=== PATIENT | male | born 1995 | race Caucasian/White ===

== ENCOUNTER 2016-09-21 09:19 | Emergency (ER) | payer OTHER ==
[2016-09-21 09:30] VITALS: BP 130/84; PULSE 75; RESP 14; TEMP 98.3
--- NOTE | 2016-09-21 09:36 | ED ---
Skin/Abscess/FB HPI - General Chief complaint: Skin/Abscess/Foreign Body Stated complaint: abscess on face Time Seen by Provider: 09/21/16 09:32 Source: patient, RN notes reviewed Mode of arrival: ambulatory Limitations: no limitations - History of Present Illness Initial comments: 20-year-old male presents emergency Department with chief complaint of left facial abscess. Patient states started Monday. Patient states he has a history of MRSA. Patient states her some discomfort but denies fever, chills, headache or neck stiffness. Patient states her was some drainage but states has stopped and states it only redness. Patient states that he tried some ice with no relief. Patient has NO KNOWN DRUG ALLERGIES. - Related Data Home Medications Medication Instructions Recorded Confirmed Sulfamethoxazole/Trimethoprim 1 tab PO Q12H 03/22/16 03/22/16 [Bactrim DS 800-160 mg] Previous Rx's Medication Instructions Recorded Acetaminophen-Codeine 300-30mg 1 each PO Q4H PRN #12 tablet 03/22/16 [Tylenol #3] Sulfamethox-Tmp 800-160Mg [Bactrim 1 each PO Q12HR #20 tab 03/22/16 DS 800-160 mg] Sulfamethox-Tmp 800-160Mg [Bactrim 2 each PO Q12HR #40 tab 09/21/16 Ds] Allergies Allergy/AdvReac Type Severity Reaction Status Date / Time No Known Allergies Allergy Verified 09/21/16 09:30 Review of Systems ROS Statement: Those systems with pertinent positive or pertinent negative responses have been documented in the HPI. ROS Other: All systems not noted in ROS Statement are negative. Past Medical History Past Medical History: No Reported History History of Any Multi-Drug Resistant Organisms: MRSA Date of last positivie culture/infection: 03/22/16 MDRO Source:: penis Past Surgical History: No Surgical Hx Reported Past Psychological History: No Psychological Hx Reported Smoking Status: Never smoker Past Alcohol Use History: None Reported Past Drug Use History: None Reported General Exam Limitations: no limitations General appearance: alert, in no apparent distress Head exam: Present: atraumatic, normocephalic, normal inspection Eye exam: Present: normal appearance, PERRL, EOMI. Absent: scleral icterus, conjunctival injection, periorbital swelling ENT exam: Present: normal exam, normal oropharynx, mucous membranes moist, TM's normal bilaterally Neck exam: Present: normal inspection, full ROM. Absent: tenderness, meningismus, lymphadenopathy Respiratory exam: Present: normal lung sounds bilaterally. Absent: respiratory distress, wheezes, rales, rhonchi, stridor Cardiovascular Exam: Present: regular rate, normal rhythm, normal heart sounds. Absent: systolic murmur, diastolic murmur, rubs, gallop, clicks Skin exam: Present: other (Left cheek there is a 2 cm area of erythema with a central lesion no purulent drainage) Course Vital Signs 09/21/16 09:27 Temperature 98.3 F Pulse Rate 75 Respiratory 14 Rate Blood Pressure 130/84 O2 Sat by Pulse 100 Oximetry Medical Decision Making - Medical Decision Making 20-year-old male presented for left facial swelling redness. Patient appears to have cellulitis secondary to a small abscess which has ruptured. Patient was placed on Bactrim at this time. Return parameters were discussed. Disposition Clinical Impression: Facial cellulitis Disposition: HOME SELF-CARE Condition: Stable Instructions: Cellulitis (ED) Additional Instructions: Please return to the Emergency Department if symptoms worsen or any other concerns. Prescriptions: Sulfamethox-Tmp 800-160Mg [Bactrim Ds] 2 each PO Q12HR #40 tab Referrals: Wicho Bowen MD [Primary Care Provider] - 1-2 days Time of Disposition: 09:36
== END 2016-09-21 09:41 | disposition home or self-care (01) ==
LOC: EC 09:19
DX: L03.211 Cellulitis of face (principal)
CPT/HCPCS: 10060; 99282; 99283

== ENCOUNTER 2016-09-21 22:58 | Emergency (ER) | payer OTHER ==
[2016-09-21 23:11] VITALS: BP 129/72; PULSE 89; RESP 18
--- NOTE | 2016-09-21 23:30 | ED ---
General Adult HPI - General Chief complaint: Skin/Abscess/Foreign Body Stated complaint: facial swelling-revisit Time Seen by Provider: 09/21/16 23:20 Source: patient, RN notes reviewed Mode of arrival: ambulatory Limitations: no limitations - History of Present Illness Initial comments: Patient 20-year-old male who presents emergency room today with a chief complaint of abscess located to the left cheek. He does admit that he was seen here in the emergency room this morning started on antibiotics. He states the swelling has gotten worse. He does admit that he's been doing some warm compresses been able to some drainage out of the area. Patient denies any other complaints or associated symptoms. He states the symptoms just started yesterday. Patient denies any recent fever, chills, shortness of breath, chest pain, back pain, abdominal pain, nausea or vomiting, numbness or tingling, dysuria or hematuria, constipation or diarrhea, headaches or visual changes, or any other complaints. - Related Data Home Medications Medication Instructions Recorded Confirmed Naproxen Sodium [Aleve] 220 mg PO DAILY PRN 09/21/16 09/21/16 Sulfamethox-Tmp 800-160Mg [Bactrim 2 tab PO Q12HR 09/21/16 09/21/16 Ds] Previous Rx's Medication Instructions Recorded Ibuprofen [Motrin] 800 mg PO Q6HR PRN #30 tab 09/22/16 Allergies Allergy/AdvReac Type Severity Reaction Status Date / Time No Known Allergies Allergy Verified 09/21/16 23:17 Review of Systems ROS Statement: Those systems with pertinent positive or pertinent negative responses have been documented in the HPI. ROS Other: All systems not noted in ROS Statement are negative. Past Medical History Past Medical History: No Reported History History of Any Multi-Drug Resistant Organisms: MRSA Date of last positivie culture/infection: 03/22/16 MDRO Source:: penis Past Surgical History: No Surgical Hx Reported Past Psychological History: No Psychological Hx Reported Smoking Status: Never smoker Past Alcohol Use History: None Reported Past Drug Use History: None Reported General Exam - General Exam Comments Initial Comments: General: The patient is awake and alert, in no distress, and does not appear acutely ill. Eye: Pupils are equal, round and reactive to light, extra-ocular movements are intact. No nystagmus. There is normal conjunctiva bilaterally. No signs of icterus. Ears, nose, mouth and throat: There are moist mucous membranes and no oral lesions. Neck: The neck is supple, there is no tenderness or JVD. Cardiovascular: There is a regular rate and rhythm. No murmur, rub or gallop is appreciated. Respiratory: Lungs are clear to auscultation, respirations are non-labored, breath sounds are equal. No wheezes, stridor, rales, or rhonchi. Musculoskeletal: Normal ROM, no tenderness. Strength 5/5. Sensation intact. Pulses equal bilaterally 2+. Neurological: A&O x 3. CN II-XII intact, There are no obvious motor or sensory deficits. Coordination appears grossly intact. Speech is normal. Skin: Does have moderate swelling to the left cheek area. There is an area that is ulcerated there is some firmness on palpation locally to the area. He does have some swelling of both the upper and lower lids. Psychiatric: Cooperative, appropriate mood & affect, normal judgment. Limitations: no limitations Course Vital Signs 09/21/16 23:07 Temperature 98.7 F Pulse Rate 89 Respiratory 18 Rate Blood Pressure 129/72 O2 Sat by Pulse 99 Oximetry Medical Decision Making - Medical Decision Making 18-gauge needle used to make small incision to left cheek area. Small amount of drainage removed. This time was discussed with patient about further options of drainage. Has been less than 24 hours. Patient will be continued on antibiotics and advised to use warm compresses. He is advised to return to emergency room if symptoms are increase worsen in the morning and advised that further drainage may need be required. Disposition Clinical Impression: Abscess Disposition: HOME SELF-CARE Condition: Good Instructions: Abscess (ED) Additional Instructions: Please continue warm compresses and antibiotics over prescribed earlier. Please return to emergency room symptoms increase or worsen or for any other concerns as discussed. Prescriptions: Ibuprofen [Motrin] 800 mg PO Q6HR PRN #30 tab PRN Reason: Pain Time of Disposition: 00:02
[2016-09-22 00:09] VITALS: TEMP 98
== END 2016-09-22 00:10 | disposition home or self-care (01) ==
LOC: EC 22:58
DX: L02.01 Cutaneous abscess of face (principal)
CPT/HCPCS: 10060; 99283

== ENCOUNTER 2016-09-22 19:37 | Inpatient (IN) | payer OTHER ==
[2016-09-22] MEDS ORDERED: SODIUM CHLORIDE 0.9% 1,000 ML IV ONE (21:31)
[2016-09-22] MEDS ORDERED: RX INFO: IV CONTRAST WAS GIVEN 1 EACH MISC MISCELLANE PRN ×2 (21:33→21:39)
[2016-09-22] MEDS ORDERED: IV VANCOMYCIN PER PHARMACY 1 EACH MISC MISCELLANE PRN (21:41)
--- NOTE | 2016-09-22 21:45 | ED ---
Skin/Abscess/FB HPI <Rosales Hwang - Last Filed: 09/22/16 22:28> - General Source: patient, RN notes reviewed, old records reviewed Mode of arrival: ambulatory Limitations: no limitations <Elaine Ferraro - Last Filed: 09/22/16 22:42> - General Chief complaint: Skin/Abscess/Foreign Body Stated complaint: DX Cellulitis/ recheck Time Seen by Provider: 09/22/16 21:18 - History of Present Illness Initial comments: This is a 20-year-old male with chief complaint left eye swelling left cheek swelling. Patient was diagnosed with facial cellulitis and was discharged with oral Bactrim. Patient reports that he's been taking it for the past day and half however does not help. Patient reports that the swelling over his eye is now extended and he is unable to fully open it. He reports that he has no pain with extraocular eye movements. He states that his vision is intact. States he has some mild drainage from the eye. Patient denies any fever or chills. He denies any nausea but didn't vomit once today. Denies any abdominal pain, dysuria or hematuria or back pain. (Elaine Ferraro) - Related Data Home Medications Medication Instructions Recorded Confirmed Naproxen Sodium [Aleve] 220 mg PO DAILY PRN 09/21/16 09/22/16 Sulfamethox-Tmp 800-160Mg [Bactrim 2 tab PO Q12HR 09/21/16 09/22/16 Ds] Previous Rx's Medication Instructions Recorded Ibuprofen [Motrin] 800 mg PO Q6HR PRN #30 tab 09/22/16 Allergies Allergy/AdvReac Type Severity Reaction Status Date / Time No Known Allergies Allergy Verified 09/22/16 21:23 Review of Systems ROS Other: All systems not noted in ROS Statement are negative. <Rosales Hwang - Last Filed: 09/22/16 22:28> ROS Other: All systems not noted in ROS Statement are negative. <Elaine Ferraro - Last Filed: 09/22/16 22:42> ROS Statement: Those systems with pertinent positive or pertinent negative responses have been documented in the HPI. Past Medical History Past Medical History: No Reported History History of Any Multi-Drug Resistant Organisms: MRSA Date of last positivie culture/infection: 03/22/16 MDRO Source:: penis Past Surgical History: No Surgical Hx Reported Past Psychological History: No Psychological Hx Reported Smoking Status: Never smoker Past Alcohol Use History: None Reported Past Drug Use History: None Reported <Elaine Ferraro - Last Filed: 09/22/16 22:42> General Exam <Rosales Hwang - Last Filed: 09/22/16 22:28> Limitations: no limitations General appearance: alert, in no apparent distress Head exam: Present: atraumatic, normocephalic, normal inspection Eye exam: Present: PERRL, EOMI, conjunctival injection (Diagnostic conjunctival injection.), other (Erythema and swelling over the left cheek. Evidence of an abscess opening in the center of the cheek. No drainage at this time.). Absent : normal appearance (Patient's left eye has some periorbital swelling. No pain with extraocular eye movements.), scleral icterus, periorbital swelling ENT exam: Present: normal exam, normal oropharynx, mucous membranes moist, TM's normal bilaterally Neck exam: Present: normal inspection. Absent: tenderness, meningismus, lymphadenopathy Respiratory exam: Present: normal lung sounds bilaterally. Absent: respiratory distress, wheezes, rales, rhonchi, stridor Cardiovascular Exam: Present: regular rate, normal rhythm, normal heart sounds. Absent: systolic murmur, diastolic murmur, rubs, gallop, clicks GI/Abdominal exam: Present: soft, normal bowel sounds. Absent: distended, tenderness, guarding, rebound, rigid Extremities exam: Present: normal inspection, full ROM, normal capillary refill. Absent: tenderness, pedal edema, joint swelling, calf tenderness Back exam: Present: normal inspection Neurological exam: Present: alert, oriented X3, CN II-XII intact Psychiatric exam: Present: normal affect, normal mood Skin exam: Present: warm, dry, intact, normal color. Absent: rash <Elaine Ferraro - Last Filed: 09/22/16 22:42> - General Exam Comments Initial Comments: This is a pleasant 20-year-old male. No distress. (Elaine Ferraro) Medical Decision Making - Lab Data Result diagrams: 09/22/16 21:50 09/22/16 21:50 <Rosales Hwang - Last Filed: 09/22/16 22:28> - Lab Data Result diagrams: 09/22/16 21:50 09/22/16 21:50 - Radiology Data Radiology results: report reviewed <Tracey Ferraroily - Last Filed: 09/22/16 22:42> - Medical Decision Making Patient was reevaluated by myself, Dr. Hwang. Patient does have cellulitis of the left upper face and left. Orbital region. Patient has had 2 recent ER visits and has been on Bactrim. Patient does meet sepsis criteria diagnosed at 10:25 PM. IV antibiotics have been started. Case was discussed in detail with Dr. chun, who will admit for Dr. Bowen. Patient was updated (Rosales Hwang) Is a 20-year-old male with 3 days of left-sided facial redness and swelling. Patient was diagnosed with left-sided facial cellulitis and was discharged on Bactrim. He was seen a second time the emergency room yesterday and it was drained slightly. Patient did not have a culture obtained at that time. Patient reports that even though taking antibiotics since became much worse. He has severe swelling over the left eye. He reports that he woke up and he could not open his eye. He states the pain is also worse. Denies any fever or chills. No meningeal signs. Patient will be started on IV fluids and IV vancomycin and Unasyn. CT orbits obtained to rule out orbital cellulitis. ( Elaine Ferraro) - Lab Data Lab Results 09/22/16 09/22/16 09/22/16 Range/Units 21:50 21:50 21:50 WBC 12.1 H (4.0-11.0) k/uL RBC 5.07 (4.30-5.90) m/uL Hgb 15.2 (13.0-17.5) gm/dL Hct 44.4 (39.0-53.0) % MCV 87.5 (80.0-100.0) fL MCH 30.0 (25.0-35.0) pg MCHC 34.3 (31.0-37.0) g/dL RDW 13.4 (11.5-15.5) % Plt Count 246 (150-450) k/uL Neutrophils % 72 % Lymphocytes % 17 % Monocytes % 8 % Eosinophils % 1 % Basophils % 1 % Neutrophils # 8.7 H (1.3-7.7) k/uL Lymphocytes # 2.1 (1.0-4.8) k/uL Monocytes # 0.9 (0-1.0) k/uL Eosinophils # 0.1 (0-0.7) k/uL Basophils # 0.1 (0-0.2) k/uL Sodium 143 (137-145) mmol/L Potassium 4.1 (3.5-5.1) mmol/L Chloride 106 (98-107) mmol/L Carbon Dioxide 22 (22-30) mmol/L Anion Gap 15 mmol/L BUN 18 (9-20) mg/dL Creatinine 1.11 (0.66-1.25) mg/dL Est GFR (MDRD) Af Amer >60 (>60 ml/min/1.73 sqM) Est GFR (MDRD) Non-Af >60 (>60 ml/min/1.73 sqM) Glucose 112 H (74-99) mg/dL Plasma Lactic Acid Mookie 1.1 (0.7-2.0) mmol/L Calcium 9.8 (8.4-10.2) mg/dL Total Bilirubin 0.8 (0.2-1.3) mg/dL AST 21 (17-59) U/L ALT 23 (21-72) U/L Alkaline Phosphatase 108 (38-126) U/L Total Protein 7.7 (6.3-8.2) g/dL Albumin 4.6 (3.5-5.0) g/dL - Radiology Data Left periorbital preseptal left facial soft tissue edema and inflammation compatible with history of cellulitis. No drainable abscess. (Elaine Ferraro) Disposition <Rosales Hwang - Last Filed: 09/22/16 22:28> Time of Disposition: 21:47 <Elaine Ferraro - Last Filed: 09/22/16 22:42> Clinical Impression: Preseptal cellulitis Disposition: ADMITTED IP TO THIS HOSP Condition: Good Referrals: Wicho Bowen MD [Primary Care Provider] - 1-2 days
[2016-09-22] MEDS ORDERED: KETOROLAC 30 MG/ML 1 ML VIAL IVP STA (21:52)
[2016-09-22 22:10] LABS: Basophils # (A) 0.1 k/uL (0-0.2); Basophils % (A) 1 %; CH 30.6; CHCM 35.1; Eosinophils # (A) 0.1 k/uL (0-0.7); Eosinophils % (A) 1 %; HCT 44.4 % (39.0-53.0); HDW 2.82; HGB 15.2 gm/dL (13.0-17.5); Luc # (Auto) 0.24; Luc % (Auto) 2; Lymphocytes # (A) 2.1 k/uL (1.0-4.8); Lymphocytes % (A) 17 %; MCHC 34.3 g/dL (31.0-37.0); MCV 87.5 fL (80.0-100.0); Mean Platelet Volume 6.9; Monocytes # (A) 0.9 k/uL (0-1.0); Monocytes % (A) 8 %; Neutrophils # (A) 8.7 k/uL (1.3-7.7); Neutrophils % (A) 72 %; RBC 5.07 m/uL (4.30-5.90); RDW 13.4 % (11.5-15.5); WBC 12.1 k/uL (4.0-11.0); WBC (Perox) 11.77
[2016-09-22 22:19] LABS: ALT 23 U/L (21-72); AST 21 U/L (17-59); Alkaline Phosphatase 108 U/L (38-126); Anion Gap 15 mmol/L; Blood Urea Nitrogen 18 mg/dL (9-20); Calcium 9.8 mg/dL (8.4-10.2); Carbon Dioxide 22 mmol/L (22-30); Chloride 106 mmol/L (98-107); Glucose 112 mg/dL (74-99); Non-African American GFR(MDRD) >60 (>60 ml/min/1.73 sqM); Potassium 4.1 mmol/L (3.5-5.1); Sodium 143 mmol/L (137-145); Total Bilirubin 0.8 mg/dL (0.2-1.3); Total Protein 7.7 g/dL (6.3-8.2)
[2016-09-22] MEDS ORDERED: NALOXONE 0.4 MG/ML 1 ML VIAL IV PRN (22:37)
[2016-09-22] MEDS ORDERED: ONDANSETRON 4 MG/2 ML VIAL IVP PRN (22:37)
[2016-09-22] MEDS ORDERED: MORPHINE SULFATE 4 MG/ML SYRINGE IV PRN (22:37)
[2016-09-22] MEDS ORDERED: ACETAMINOPHEN TAB 325 MG TAB PO PRN (22:37)
[2016-09-22] MEDS ORDERED: IBUPROFEN 400 MG TAB PO PRN (22:37)
--- NOTE | 2016-09-22 22:41 | CT ---
EXAM: CT Orbits With Intravenous Contrast CLINICAL HISTORY: Left eye cellulitis. Increase pain. TECHNIQUE: Axial computed tomography images of the orbits with intravenous contrast. CTDI is 30 mGy and DLP is 447 mGy-cm This CT exam was performed using one or more of the following dose reduction techniques: automated exposure control, adjustment of the mA and/or kV according to patient size, and/or use of iterative reconstruction technique. Coronal and sagittal reformatted images were created and reviewed. COMPARISON: No relevant prior studies available. FINDINGS: Soft tissues: Left periorbital (preseptal) and left facial soft tissue edema/inflammation, compatible with cellulitis in the setting of infection. No drainable abscess. Orbits: The orbits and globes are intact. No mass or post-septal inflammatory changes. Sinuses: Trace maxillary sinus mucosal thickening. No air-fluid levels. Bones/joints: No acute fracture. IMPRESSION: Left periorbital (preseptal) and left facial soft tissue edema/inflammation, compatible with history of cellulitis. No drainable abscess.
[2016-09-22] MEDS: AMPICILLIN-SULBACTAM 3 GM in SODIUM CHLORIDE 0.9% 100 ML IVPB SCH (23:43)
[2016-09-22] MEDS: SODIUM CHLORIDE 0.9% 1,000 ML IV SCH (23:44)
[2016-09-23] MEDS ORDERED: VANCOMYCIN 1,500 MG in SODIUM CHLORIDE 0.9% 250 ML IVPB ONE ×2
[2016-09-23] MEDS: KETOROLAC 30 MG/ML 1 ML VIAL IVP PRN ×3 (07:52→18:21)
[2016-09-23] MEDS: AMPICILLIN-SULBACTAM 3 GM in SODIUM CHLORIDE 0.9% 100 ML IVPB SCH ×2 (08:05→15:06)
[2016-09-23] MEDS: SODIUM CHLORIDE 0.9% 1,000 ML IV SCH ×3 (08:05→21:56)
[2016-09-23] MEDS ORDERED: PANTOPRAZOLE 40 MG/10 ML VIAL IV SCH (09:00)
[2016-09-23] MEDS: VANCOMYCIN 1,250 MG in SODIUM CHLORIDE 0.9% 250 ML IVPB SCH ×3 (09:18→23:20)
--- NOTE | 2016-09-23 14:09 | HP ---
DATE OF ADMISSION: Patient a 20-year-old came in with swelling and redness of the left cheek area. It has been going on for 3-days and patient was given Bactrim without any significant improvement. He used Bactrim for a couple days. Patient has cellulitis in that area. CT of the head was done and it showed preseptal cellulitis without any involvement to orbit. Patient does have leukocytosis. Denied any fevers. Patient was started on vancomycin and Zosyn. Since he failed outpatient Bactrim, I am consulting Infectious Disease. Patient probably will need IV antibiotics. Possibility of discharge tomorrow. REVIEW OF SYSTEMS: CONSTITUTIONAL: No fever, no malaise, no fatigue. HEENT: No recent visual problems or hearing problems. Denied any sore throat. CARDIOVASCULAR: No chest pain, orthopnea, PND, no palpitations, no syncope. PULMONARY: No shortness of breath, no cough, no hemoptysis. GASTROINTESTINAL: No diarrhea, no nausea, no vomiting, no abdominal pain. Normoactive bowel sounds. NEUROLOGICAL: No headaches, no weakness, no numbness. HEMATOLOGICAL: Denies any bleeding or petechiae. GENITOURINARY: Denies any burning micturition, frequency, or urgency. MUSCULOSKELETAL/RHEUMATOLOGICAL: Denies any joint pain, swelling, or any muscle pain. ENDOCRINE: Denies any polyuria or polydipsia. DERMATOLOGIC: As described in HPI. The rest of the 14 point review of systems is negative. Home medications include: Naproxen, Bactrim. ALLERGIES: No known drug allergies. PAST MEDICAL HISTORY: None. SOCIAL HISTORY: Denied smoking, alcohol abuse or any drug abuse. FAMILY HISTORY: Denied any family history of hypertension, diabetes mellitus in the family. PHYSICAL EXAMINATION: VITAL SIGNS: Temperature 97.2, pulse of 80, respiratory rate of 18, blood pressure is 124/70, saturating at 97% on room air. GENERAL: The patient is alert and oriented x3, not in any acute distress. Well developed, well nourished. HEENT: Left side of the face has a nidus of infection with skin breakdown with surrounding cellulitis involving the lower eye lid on the left side with localized temperature. CARDIOVASCULAR: S1 and S2 present. No murmurs, rubs, or gallops. PULMONARY: Chest is clear to auscultation, no wheezing or crackles. ABDOMEN: Soft, nontender, nondistended, normoactive bowel sounds. No palpable organomegaly. MUSCULOSKELETAL: No joint swelling or deformity. EXTREMITIES: No cyanosis, clubbing, or pedal edema. NEUROLOGICAL: Gross neurological examination did not reveal any focal deficits. SKIN: No rashes. LABORATORY DATA: CBC and CMP abnormal for elevated WBC count of 11,200. ASSESSMENT AND PLAN: 1. Preseptal cellulitis and cellulitis of the left cheek for which patient was on vancomycin and Unasyn, which I will continue until Infectious Disease sees the patient. Patient at one point of time had pus coming out of it, although patient does not have any more pus coming out of it, because of which I cannot obtain any cultures at this point of time. 2. Leukocytosis secondary to assessment #1. PLAN: Continue with IV antibiotics today. Possibility of discharge tomorrow if improved on oral doxycycline and will get recommendations from Infectious Disease.
--- NOTE | 2016-09-23 17:35 | CONS ---
DATE OF CONSULTATION: 09/23/2016 REASON FOR CONSULTATION: Left facial cellulitis and abscess. HISTORY OF PRESENT ILLNESS: The patient is a 20-year-old male presenting to the ER with chief complaints of left facial pain, swelling, redness his symptoms have been going on for a few days now; since Monday. The patient said that Monday he woke up and there was a small pimple, and the area became more swollen and red. Patient has been evaluated, has been treated with Bactrim DS, which he took for about 2 days; however, he did not have any significant improvement. It became more swollen and red. Pain is described to be throbbing, 4 to 5 out of 10, and no radiation. Subsequently the patient was evaluated by the ER physician. He had an orbit CT that shows evidence of cellulitis but no drainable abscess. The patient was started on Unasyn and vancomycin. I was asked to see the patient for further recommendations regarding antibiotic therapy. patient noticed to have drainage from the area, mild in nature, though. Patient does give a history of previous MRSA infection. REVIEW OF SYSTEMS: CONSTITUTIONAL: Positive for weakness. Denies any high-grade fever. EYES: No complaint. ENT: As per HPI. RESPIRATORY: No complaint. CARDIOVASCULAR: No complaint. GENITOURINARY: No complaint. GASTROINTESTINAL: No complaint. MUSCULOSKELETAL: No complaint. INTEGUMENTARY: As per HPI. PSYCHOLOGIC: No complaint. ENDOCRINE: No complaint. NEUROLOGIC: No complaint. PAST MEDICAL HISTORY: MRSA infection of the genital area. PAST SURGICAL HISTORY: No major surgery. SOCIAL HISTORY: Denies smoking, drinking or drug use. FAMILY HISTORY: No pertinent findings noticed. ALLERGIES: NO KNOWN DRUG ALLERGIES. Medications currently include: 1. Tylenol. 2. Toradol. 3. Unasyn. 4. Vancomycin. 5. Narcan. 6. Zofran. 7. Protonix. On examination, blood pressure is 104/58 with a pulse of 79, temperature 97.4. He is 98% on room air. General description is a thin male lying in bed in no distress. No tachypnea or accessory muscle of respiration use. HEENT examination shows no pallor or scleral icterus. Left facial area has a significant amount swelling and induration. On minimal pressure, a significant amount of pus came out which was cultured. NECK: Trachea is central. No thyromegaly. LUNGS: Unlabored breathing. Clear to auscultation anteriorly. HEART: S1, S2. Regular rate and rhythm. ABDOMEN: Soft. No tenderness. EXTREMITIES: No edema of the feet. SKIN EXAMINATION: No rash or mass palpable. Neurologically patient is awake, alert, oriented x3. Mood and affect normal. LABS: Hemoglobin 15.2, white count 12.1. BUN of 18, creatinine 1.11. Liver enzymes are normal. Blood culture obtained; currently pending. DIAGNOSTIC IMPRESSION AND PLAN: Patient with left facial cellulitis in a patient who did have significant swelling and redness with induration; with minimal pressure, a significant amount of pus came out. Patient with previous history of methicillin-resistant Staphylococcus aureus infection; will be more likely an MRSA abscess. PLAN: 1. We did obtain wound cultures. Will wait for them to be finalized to determine his discharge antibiotics. 2. Recommend keeping the patient on IV antibiotic in the form of vancomycin, with high suspicion for MRSA with contact precautions. Discontinue Unasyn. 3. Depending upon his clinical response and cultures, will determine discharge antibiotics. Thank you for this consultation. Will follow this patient along with you. CARY
[2016-09-23 23:25] VITALS: RESP 16
[2016-09-24] MEDS ORDERED: VANCOMYCIN TROUGH DUE 1 EACH MISC MISCELLANE ONE (07:00)
[2016-09-24] MEDS: SODIUM CHLORIDE 0.9% 1,000 ML IV SCH (07:22)
[2016-09-24] MEDS: VANCOMYCIN 1,250 MG in SODIUM CHLORIDE 0.9% 250 ML IVPB SCH (07:23)
[2016-09-24 07:34] VITALS: BP 129/75; PULSE 80; TEMP 97.2
[2016-09-24 07:35] LABS: Basophils % (A) 0 %; CH 29.7; Eosinophils # (A) 0.1 k/uL (0-0.7); Eosinophils % (A) 2 %; HCT 41.7 % (39.0-53.0); HGB 13.8 gm/dL (13.0-17.5); Luc # (Auto) 0.18; Luc % (Auto) 3; Lymphocytes # (A) 1.6 k/uL (1.0-4.8); Lymphocytes % (A) 24 %; MCH 29.8 pg (25.0-35.0); MCV 90.4 fL (80.0-100.0); Mean Platelet Volume 6.4; Monocytes # (A) 0.5 k/uL (0-1.0); Monocytes % (A) 7 %; Neutrophils # (A) 4.4 k/uL (1.3-7.7); Neutrophils % (A) 65 %; RBC 4.62 m/uL (4.30-5.90); RDW 13.2 % (11.5-15.5); WBC 6.7 k/uL (4.0-11.0); WBC (Perox) 7.06
[2016-09-24 07:42] LABS: Anion Gap 10 mmol/L; Blood Urea Nitrogen 9 mg/dL (9-20); Calcium 9.2 mg/dL (8.4-10.2); Carbon Dioxide 22 mmol/L (22-30); Chloride 109 mmol/L (98-107); Glucose 94 mg/dL (74-99); Non-African American GFR(MDRD) >60 (>60 ml/min/1.73 sqM); Potassium 4.2 mmol/L (3.5-5.1); Sodium 141 mmol/L (137-145)
[2016-09-24] MEDS ORDERED: PANTOPRAZOLE 40 MG TABLET PO SCH (09:00)
--- NOTE | 2016-09-24 12:48 | DS ---
DATE OF ADMISSION: 09/22/2016 DATE OF DISCHARGE: Patient is 20-year-old admitted with preseptal cellulitis of the left side of the face. Patient believes there is improvement. I believe there is a little bit improvement in his redness with IV antibiotics with vancomycin. Patient's wound cultures are positive for gram-positive cocci. I do not have the finalization of the culture. As the patient wanted to go home and he feels better, I will go ahead and discharge him on doxycycline. Yesterday, I discussed his case with Dr. Ovalle that is what he recommended and I will discharge him on a week of antibiotics. Patient will follow with Dr. Ovalle next . Will follow up with the cultures. If the organism is not sensitive to doxycycline, I will go ahead and give him a call tomorrow and probably change the antibiotic or bring him back to the hospital depending on what the culture ( ). The patient was seen and examined on the day of discharge. Vitals are stable. PHYSICAL EXAMINATION: GENERAL: The patient is alert and oriented x3, not in any acute distress. Well developed, well nourished. HEENT: Pupils are round and equally reacting to light. EOMI. No scleral icterus. No conjunctival pallor. Normocephalic, atraumatic. No pharyngeal erythema. No thyromegaly. CARDIOVASCULAR: S1 and S2 present. No murmurs, rubs, or gallops. PULMONARY: Chest is clear to auscultation, no wheezing or crackles. ABDOMEN: Soft, nontender, nondistended, normoactive bowel sounds. No palpable organomegaly. MUSCULOSKELETAL: No joint swelling or deformity. EXTREMITIES: No cyanosis, clubbing, or pedal edema. NEUROLOGICAL: Gross neurological examination did not reveal any focal deficits. SKIN: No rashes. LEFT SIDE OF THE FACE: Cellulitis improved and there is no significant discharge from the wound on the left chin area. LABORATORY DATA: WBC count improved to 6700. ASSESSMENT AND PLAN: 1. Preseptal cellulitis. 2. Leukocytosis and sepsis secondary to that. Plan as mentioned above. Patient will follow with Dr. Wicho Bowen in 3 to [address] Ramakrishna Ovalle on 29 of September at 12 p.m. Plan as mentioned above. Discharged diet regular. Activity as tolerated.
== END 2016-09-24 13:05 | disposition home or self-care (01) | DRG 603 ==
LOC: EC 19:37 → 4MS4W 21:47
PROVIDERS: ADMIT Internal Medicine; ATTEND Internal Medicine
DX: L03.211 Cellulitis of face (principal); Z86.14 Personal history of Methicillin resistant Staphylococcus aureus infection; L03.213 Periorbital cellulitis; Z79.899 Other long term (current) drug therapy
CPT/HCPCS: 36415; 70481; 80048; 80053; 80202; 83605; 85025; 87040; 87070; 87077; 87186; 87205; 96361; 96365; 96366; 96367; 96375; 96376; 99285

== ENCOUNTER 2017-09-06 21:49 | Emergency (ER) | payer OTHER ==
[2017-09-06] MEDS ORDERED: PROPARACAINE 0.5% OPHTH DROPS 15 ML BTL RIGHT EYE STA (23:36)
[2017-09-06] MEDS ORDERED: KETOROLAC 30 MG/ML 1 ML VIAL IVP STA (23:36)
[2017-09-06] MEDS ORDERED: ONDANSETRON ODT 4 MG TAB PO STA (23:54)
[2017-09-06] MEDS ORDERED: KETOROLAC 30 MG/ML 1 ML VIAL IM STA (23:54)
[2017-09-07] MEDS ORDERED: AMOXICILLIN 500 MG CAP PO STA (00:17)
[2017-09-07] MEDS ORDERED: TOBRAMYCIN 0.3% OPHTH DROPS 5 ML BTL RIGHT EYE STA (00:18)
--- NOTE | 2017-09-07 00:22 | ED ---
ENT HPI - General Chief complaint: ENT Stated complaint: eye & ear pain/vomiting Time Seen by Provider: 09/06/17 23:23 Source: patient Mode of arrival: ambulatory Limitations: no limitations - History of Present Illness Initial comments: 21-year-old male patient presents to the emergency department today for evaluation of right eye redness and drainage, right ear pain, and sore throat. Patient states that symptoms started this morning. Patient states that he has had eye redness and green drainage throughout the day today. He states it feels a little "scratchy" in the corners of his eyes. Denies any blurred or double vision with this. Patient states that he also feels a pressure and pain in the right ear. Denies any ear drainage. Denies any difficulty hearing. Patient also reports sore throat, states it is equal on both sides. Denies any difficulty swallowing. Denies any fevers or chills with this. States he is nauseated. Denies any cough but does report nasal congestion. Patient denies any recent rash, shortness breath, chest pain, abdominal pain, vomiting, diarrhea, constipation, back pain, numbness, tingling, dizziness, weakness, hematuria, dysuria, urinary urgency, urinary frequency, headache, or any other complaints. - Related Data Previous Rx's Medication Instructions Recorded Ibuprofen [Motrin] 800 mg PO Q6HR PRN #30 tab 09/22/16 Doxycycline Hyclate 100 mg PO BID #14 tab 09/24/16 Amoxicillin 500 mg PO Q8H #30 capsule 09/07/17 Allergies Allergy/AdvReac Type Severity Reaction Status Date / Time No Known Allergies Allergy Verified 09/22/16 21:23 Review of Systems ROS Statement: Those systems with pertinent positive or pertinent negative responses have been documented in the HPI. ROS Other: All systems not noted in ROS Statement are negative. Past Medical History Past Medical History: No Reported History History of Any Multi-Drug Resistant Organisms: MRSA Date of last positivie culture/infection: 03/22/16 MDRO Source:: penis Past Surgical History: No Surgical Hx Reported Past Psychological History: No Psychological Hx Reported Smoking Status: Never smoker Past Alcohol Use History: None Reported Past Drug Use History: None Reported - Past Family History Mother Family Medical History: No Reported History General Exam Limitations: no limitations General appearance: alert, in no apparent distress Eye exam: Present: normal appearance, PERRL, EOMI, conjunctival injection ( Right eye), other (Thick green discharge from the right eye noted). Absent: scleral icterus, periorbital swelling ENT exam: Present: normal exam, mucous membranes moist. Absent: normal oropharynx (Pharyngeal erythema, bilateral tonsillar hypertrophy), TM's normal bilaterally (Right tympanic membrane is bulging with evidence of effusion, dull. No canal erythema, swelling, or drainage noted. No mastoid tenderness.) Neck exam: Present: normal inspection. Absent: tenderness, meningismus, lymphadenopathy Respiratory exam: Present: normal lung sounds bilaterally. Absent: respiratory distress, wheezes, rales, rhonchi, stridor Cardiovascular Exam: Present: regular rate, normal rhythm, normal heart sounds. Absent: systolic murmur, diastolic murmur, rubs, gallop, clicks GI/Abdominal exam: Present: soft, normal bowel sounds. Absent: distended, tenderness, guarding, rebound, rigid Neurological exam: Present: alert, oriented X3, CN II-XII intact Psychiatric exam: Present: normal affect, normal mood Skin exam: Present: warm, dry, intact, normal color. Absent: rash Course Vital Signs 09/06/17 09/07/17 21:57 00:23 Temperature 97.9 F 97.0 F L Pulse Rate 76 88 Respiratory 16 18 Rate Blood Pressure 159/88 121/77 O2 Sat by Pulse 99 97 Oximetry Medical Decision Making - Medical Decision Making 21-year-old male patient presented to the emergency department today with complaints of right ear pain, right eye pain and discharge, and sore throat. Physical examination did reveal conjunctival injection with green drainage from the right eye. There was evidence of pharyngeal erythema or tonsillar hypertrophy. There was evidence of otitis media on the right tympanic membrane. Strep screen was negative. I did discuss findings with the patient. He was started on amoxicillin for otitis media to the right. He will be started on tobramycin ophthalmic solution to the right eye. He is instructed to follow-up with ophthalmology if his symptoms don't improve over the next 1-2 days. He is instructed to follow-up with his primary care physician for recheck in 1-2 days. Return parameters were discussed in detail. He verbalizes understanding and agrees with this plan. - Lab Data Lab Results 09/06/17 Range/Units 23:57 Group A Strep Rapid Negative (Negative) Disposition Clinical Impression: Right otitis media, Viral pharyngitis, Conjunctivitis Disposition: HOME SELF-CARE Condition: Good Instructions: Tobramycin (Into the eye), Pharyngitis (ED), Otitis Media (ED), Conjunctivitis (ED) Additional Instructions: Do two drops to the right eye 4 times daily while awake. Complete antibiotic prescription in full for the ear infection. Follow-up with your primary care physician for recheck in 1-2 days. Follow-up with ophthalmology if symptoms aren't improving over the next 1-2 days. Return here immediately for any new, worsening, or concerning symptoms. Prescriptions: Amoxicillin 500 mg PO Q8H #30 capsule Is patient prescribed a controlled substance at discharge?: No Referrals: Wicho Bowen MD [Primary Care Provider] - 1-2 days Ashwin Huffman MD [STAFF PHYSICIAN] - 1-2 days Time of Disposition: 00:22
[2017-09-07 00:25] VITALS: BP 121/77; PULSE 88; RESP 18; TEMP 97
== END 2017-09-07 00:35 | disposition home or self-care (01) ==
LOC: EC 21:49
DX: H66.91 Otitis media, unspecified, right ear (principal); J02.9 Acute pharyngitis, unspecified; H10.9 Unspecified conjunctivitis; Z86.14 Personal history of Methicillin resistant Staphylococcus aureus infection; Z53.8 Procedure and treatment not carried out for other reasons
CPT/HCPCS: 99283; 96372; 87081; 87430; J1885